=== PATIENT | female | born 1970 | race Caucasian/White ===

== ENCOUNTER 2019-05-08 17:32 | Emergency (ER) | payer SELFPAY ==
[~2019-05-08] VITALS: Ht 162.6 cm; Wt 63.5 kg
--- NOTE | 2019-05-08 17:39 | PHYS DOC ---
Adult General Chief Complaint Chief Complaint: EYE PROBLEMS".. I got this Lt eye problem.. It is red.. and irritated.. I know I been rubbing it.. 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 Patient has obvious injected conjunctiva. There is some mild limbus injection medially at 9:00. Patient does wear contacts. Patient has no backup glasses. Patient's visual acuity is 2070 and left eye. Visual acuity in right eye is 20/40.. Patient denies any history of foreign body. Patient does tetanus is up-to-date as of 2 years ago. Patient has had irritated eyes since Thursday. For same did show uptake in the area of abrasion, does have some generalize uptake from contact wearer. Patient denies any history immunosuppression. Patient denies syncope ill contacts. She has no consensual photophobia. And this exam is limited but no obvious cell or flare. Review of Systems Review of Systems Constitutional: Denies fever or chills [] Eyes: Denies change in visual acuity, redness, or eye pain. Except the findings in left eye. HENT: Denies nasal congestion or sore throat [] Respiratory: Denies cough or shortness of breath [] Cardiovascular: No additional information not addressed in HPI [] GI: Denies abdominal pain, nausea, vomiting, bloody stools or diarrhea [] : Denies dysuria or hematuria [] Musculoskeletal: Denies back pain or joint pain [] Integument: Denies rash or skin lesions [] Neurologic: Denies headache, focal weakness or sensory changes [] Endocrine: Denies polyuria or polydipsia [] All other systems were reviewed and found to be within normal limits, except as documented in this note. Family History Family History Noncontributory Current Medications Current Medications See nursing for home meds Allergies Allergies Allergy ibuprofen Physical Exam Physical Exam Constitutional: Well developed, well nourished, no acute distress, non-toxic appearance. [] HENT: Normocephalic, atraumatic, bilateral external ears normal, oropharynx moist, no oral exudates, nose normal. [] Eyes: PERRLA, EOMI, conjunctiva normal, no discharge. [] Except the findings and left eye as per history of present illness Neck: Normal range of motion, no tenderness, supple, no stridor. [] Cardiovascular:Heart rate regular rhythm, no murmur [] Lungs & Thorax: Bilateral breath sounds equal at apex auscultation [] Abdomen: Bowel sounds normal, soft, no tenderness, no masses, no pulsatile masses. [] Skin: Warm, dry, no erythema, no rash. [] Back: No tenderness, no CVA tenderness. [] Extremities: No tenderness, no cyanosis, no clubbing, ROM intact, no edema. [] Neurologic: Alert and oriented X 3, normal motor function, normal sensory function, no focal deficits noted. [] Psychologic: Affect anxious, judgement normal, mood normal. [] EKG EKG [] Radiology/Procedures Radiology/Procedures [] Course & Med Decision Making Course & Med Decision Making Pertinent Labs and Imaging studies reviewed. (See chart for details) Must not wear contacts. Wear glasses. Use a small amount of Polysporin and left eye 4 times a day. May use Ketorlac drops 4 times a day for pain. Must follow-up with ophthalmology. For marked discomfort may take Tylenol or Percocet. MUST FOLLOW UP. []Impression: 1. Corneal Abrasion Dragon Disclaimer Dragon Disclaimer This electronic medical record was generated, in whole or in part, using a voice recognition dictation system. Departure Departure: Disposition: 01 HOME/RESIDENCE PRIOR TO ADM Condition: STABLE Scripts Oxycodone HCl/Acetaminophen (Percocet 5-325 mg Tablet) 1 Each Tablet 1 TAB PO PRN QID PRN for PAIN MDD 4 Tablet(s), #30 TAB 0 Refills Prov: DESHAWN WOMACK MD 05/08/19 Dylan Disclaimer This chart was dictated in whole or in part using Voice Recognition software in a busy, high-work load, and often noisy Emergency Department environment. It may contain unintended and wholly unrecognized errors or omissions. Dragon Disclaimer This chart was dictated in whole or in part using Voice Recognition software in a busy, high-work load, and often noisy Emergency Department environment. It may contain unintended and wholly unrecognized errors or omissions. Dragon Disclaimer This chart was dictated in whole or in part using Voice Recognition software in a busy, high-work load, and often noisy Emergency Department environment. It may contain unintended and wholly unrecognized errors or omissions. Dragon Disclaimer This chart was dictated in whole or in part using Voice Recognition software in a busy, high-work load, and often noisy Emergency Department environment. It may contain unintended and wholly unrecognized errors or omissions. DESHAWN WOMACK MD May 08, 2019 17:39
[2019-05-08] MEDS ORDERED: FLUORESCEIN 1MG EYE STRIP. OU ONE (18:00)
[2019-05-08] MEDS ORDERED: TETRACAINE 0.5% OPHTH SOLUTION 4ML BOTTLE. OU ONE (18:00)
[2019-05-08] MEDS ORDERED: OXYC-325 PO (18:13)
[2019-05-08 18:14] VITALS: BP 138/90
[2019-05-08] MEDS ORDERED: oxyCODONE/APAP 5/325 1 TAB TABLET PO ONE (18:15)
[2019-05-08] MEDS ORDERED: CYCLOPENTOLATE 1% OPTH SOLUTION 2ML BOTTLE. OS ONE (18:15)
[2019-05-08] MEDS ORDERED: BACITRACIN/POLYMYXIN B OPHTH OINTMENT 3.5GM TUBE. OU ONE (18:15)
[2019-05-08] MEDS ORDERED: KETOROLAC TROMETHAMINE 0.5% OPHTH SOLUTION BOTTLE. OS ONE (18:30)
== END 2019-05-08 18:47 | disposition home or self-care (01) ==
LOC: ER 17:32
DX: S05.02XA Injury of conjunctiva and corneal abrasion without foreign body, left eye, initial encounter (principal); X58.XXXA Exposure to other specified factors, initial encounter; Y93.89 Activity, other specified; Y92.89 Other specified places as the place of occurrence of the external cause; Y99.8 Other external cause status
CPT/HCPCS: 99284